=== PATIENT | female | born 1940 | race Caucasian/White ===

== ENCOUNTER 2019-04-06 09:13 | Emergency (ER) | payer OTHER ==
[~2019-04-06] VITALS: Ht 175.3 cm; Wt 77.1 kg
[2019-04-06] MEDS ORDERED: TOPROL XL100 M1 (09:44)
[2019-04-06] MEDS ORDERED: SYNTHROID100 MCG (09:45)
[2019-04-06] MEDS ORDERED: SIMVASTATIN20 MG (09:45)
[2019-04-06] MEDS ORDERED: ASPIR 8181 MG (09:45)
== END 2019-04-06 10:57 | disposition home or self-care (01) ==
LOC: ER 09:13
DX: M15.8 Other polyosteoarthritis (principal)